=== PATIENT | female | born 1950 | race Caucasian/White ===

== ENCOUNTER 2019-06-11 07:57 | Outpatient (CLI) | payer MEDICARE, BC, SELFPAY ==
--- NOTE | 2019-06-11 08:14 | MM_ITS ---
WS: [id number] BILATERAL SCREENING DIGITAL MAMMOGRAM WITH CAD HISTORY: SCREENING COMPARISON: 06/07/2018 and 06/03/2017 Bilateral CC and MLO views submitted. Computer aided detection analyzed. Breast composition: There are scattered areas of fibroglandular density. No suspicious masses, microc alcifications or architectural distortion. Benign calcification upper-outer quadrant of the RIGHT saurav ast. MM/[id number] IMPRESSION: BI-RADS: 2-Benign FOLLOW UP: 1 Year Follow-up
== END 2019-06-11 07:58 | disposition home or self-care (01) ==
PROVIDERS: Family Provider Family Medicine; PCP Family Medicine; Visit Provider Family Medicine
DX: Z12.31 Encounter for screening mammogram for malignant neoplasm of breast (principal)
CPT/HCPCS: 77067

== ENCOUNTER → 2020-09-03 10:33 | Outpatient (BNVA) | payer MEDICARE, BC, SELFPAY | PROVIDERS: Family Provider Family Medicine; PCP Family Medicine; Visit Provider Nurse Practitioner | DX: J02.9 Acute pharyngitis, unspecified (principal); J01.90 Acute sinusitis, unspecified; B96.89 Other specified bacterial agents as the cause of diseases classified elsewhere; Z68.30 Body mass index [BMI] 30.0-30.9, adult | CPT/HCPCS: 87071; 87880 ==

== ENCOUNTER 2021-12-29 15:14 | Outpatient (CLI) | payer MEDICARE, BC, SELFPAY ==
--- NOTE | 2021-12-29 15:29 | MM_ITS ---
WS: [id number] BILATERAL 3D TOMOSYNTHESIS DIGITAL SCREENING MAMMOGRAPHY WITH CAD CLINICAL INFORMATION: SCREENING HISTORY: Screening mammogram. No current complaints. COMPARISON: June 11, 2019 TECHNIQUE: Bilateral CC and MLO views. FINDINGS: Scattered fibroglandular densities bilaterally. A few punctate calcifications RIGHT breast. No suspic ious focal mass, asymmetry, calcifications, or architectural distortion. No evidence of malignancy. MM/[id number] IMPRESSION: BI-RADS: 2-Benign FOLLOW UP: 1 Year Follow-up Recommend return to annual screening mammography.
== END 2021-12-29 15:15 | disposition home or self-care (01) ==
PROVIDERS: PCP Family Medicine; Visit Provider Family Medicine
DX: Z12.31 Encounter for screening mammogram for malignant neoplasm of breast (principal)
CPT/HCPCS: 77063; 77067

== ENCOUNTER 2022-01-30 17:11 | Emergency (ER) | payer MEDICARE, BC, SELFPAY ==
[2022-01-30 17:20] VITALS: BP 173/93; PULSE 90; RESP 16; TEMP 36.7; O2SAT 95; BMI 30.6
--- NOTE | 2022-01-30 17:46 | ED_ITS ---
HPI - Abdominal Pain General: Chief Complaint: Abdominal Pain Stated Complaint: abd pain; diarrhea Time Seen by Provider: 01/30/22 17:40 Source: patient Mode of arrival: ambulatory History of Present Illness: 71-year-old female presents emergency room with left lower quadrant abdominal discomfort x3 days.. She is having some loose stools denies any hematochezia melena hematemesis or coffee-ground emesis. She has been somewhat nauseous. No fever sweats or chills. No dysuria urgency or frequency. Symptoms feel similar to what she has had in the past with diverticulitis. MD elicited complaint: abdominal pain Pertinent past history: diverticulitis Onset (ago): day(s) (3) Pain Consistency: constant Location: LLQ Severity: moderate Quality: cramping Radiation: none Exacerbating factors: nothing Relieving factors: nothing Associated Symptoms: Reports bloating, change in bowel habits, GI cramping, diarrhea, nausea and poor appetite; Denies anorexia, belching, change in stool character, chills, coffee ground emesis, constipation, dyspepsia, dysuria, excessive flatus, fever(s), heartburn, hematochezia, hematuria, hematemesis, fecal incontinence, loose stools, melena, syncope and vomiting Review of Systems Const: Denies: fever(s), chills, fatigue or malaise ENMT: Denies: throat pain, ear or mastoid pain, nasal discharge or nasal congestion Card: Denies: chest pain or syncope Resp: Denies: dyspnea, productive cough or non-productive cough GI: Reports: abdominal pain, nausea, diarrhea, bloating, GI cramping and c hange in bowel habits; Denies: vomiting, hematemesis, coffee ground emesis, heartburn, constipation, belching, excessive flatus, fecal incontinence, change in stool character, hematochezia or melena : Denies: flank pain, difficulty voiding, dysuria, urinary frequency, urinary urgency or hematuria Skin/Breast: Denies: rash or pruritus PFSH ED PFSH: Medical History (Updated 02/02/22 @ 06:42 by Natan Goodman DO) Diverticulitis Social History Smoking and tobacco status: never smoked Physical Exam Const: GENERAL APPEARANCE: cooperative and comfortable ORIENTATION/CONSCIOUSNESS: Yes awake, Yes oriented to person, Yes oriented to place and Yes oriented to time HENMT: COMMON NORMALS: normocephalic, atraumatic and hearing grossly normal bilaterally HEAD & SCALP: normocephalic and atraumatic Resp: COMMON NORMALS: normal respiratory effort, No retractions, No use of accessory muscles and clear to auscultation bilaterally AUSCULTATION: clear to auscultation bilaterally Cardio: COMMON NORMALS: regular rate, regular rhythm and No murmurs present (Cardio) RATE: regular rate RHYTHM: regular rhythm GI: COMMON NORMALS: No hepatosplenomegaly present AUSCULTATION: Yes normoactive bowel sounds PALPATION: Yes Tenderness to palpation present (GI) Details: LLQ, No Guarding due to palpation present (GI) and Yes No hepatosplenomegaly present Extremity: COMMON NORMALS: normal to inspection, capillary refill normal, no clubbing, cyanosis or edema, no calf tenderness and no pedal edema Neuro: SENSORIUM/ORIENTATION: Yes oriented to person, Yes oriented to place and Yes oriented to time Skin: COMMON NORMALS: no rashes or lesions noted GENERAL SKIN EXAM: no rashes or lesions noted Course Vital Signs: Vital signs: Vital Signs Temperature 98.0 F 01/30/22 17:20 Pulse Rate 92 01/30/22 18:31 Respiratory Rate 16 01/30/22 18:31 Blood Pressure 169/104 01/30/22 18:31 Pulse Oximetry 97 01/30/22 18:31 Oxygen Delivery Me thod 01/30/22 17:20 MDM - Abdominal Pain Medical Decision Making Based on history and exam patient has diverticulitis. Will treat with oral antibiotics. Clear liquid diet for the next few days return to the emergency room if suddenly worsening or change. Follow-up with primary care doctor if does not begin to improve in the next several days. Medical Records I reviewed the patient's medical records. Lab Data I reviewed the patient's lab results. Discharge Plan Discharge Patient Disposition: Home Clinical Impression: Diverticulitis Condition: Stable Prescriptions: New ciprofloxacin HCl 500 mg tablet 500 mg PO BID Qty: 20 0RF metronidazole 500 mg tablet 500 mg PO BID 10 Days Qty: 20 0RF hydrocodone-acetaminophen 5-325 mg tablet 1 tab PO Q6H PRN (Reason: pain) Qty: 20 0RF promethazine 25 mg tablet 25 mg PO Q6H PRN (Reason: nausea and vomiting) Qty: 20 0RF Discontinued amoxicillin 500 mg capsule 500 mg PO Q12H 10 Days Qty: 20 0RF Discharge Orders: Discharge ED (Routine); Ordered 01/30/22 Ordered By: Natan Goodman Referrals: Polina Wahl MD [Primary Care Provider] - Discharge Diet: Full LIquid Discharge Activity: Increase activity as tolerated Patient Instructions: Opioid Safety Activity Restrictions/Additional Instructions: If not improving over the next 2 days follow-up with Dr. Siddiqui in the office. If she markedly worsens return to the emergency room. Coding Level of Care Code ED Scientific Artist for Danika Gracia
[2022-01-30] MEDS: promethazine 25 mg/mL SDV 1 mL IM (18:03)
[2022-01-30] MEDS: HYDROmorphone 1 mg/mL INJ 1 mL 0.5 MG IM (18:08)
[2022-01-30 18:31] VITALS: BP 169/104; PULSE 92; RESP 16; O2SAT 97
== END 2022-01-30 18:34 | disposition home or self-care (01) ==
PROVIDERS: Emergency Provider Family Medicine; PCP Family Medicine
DX: K57.92 Diverticulitis of intestine, part unspecified, without perforation or abscess without bleeding (principal)
CPT/HCPCS: 96372; 99284; J1170; J2550

== ENCOUNTER → 2022-11-09 10:06 | Outpatient (BNVA) | payer MEDICARE, SELFPAY | PROVIDERS: PCP Family Medicine; Visit Provider Nurse Practitioner Family | DX: J02.9 Acute pharyngitis, unspecified (principal) | CPT/HCPCS: 87071; 87880 ==

== ENCOUNTER 2022-12-22 13:32 | Emergency (ER) | payer MEDICARE, SELFPAY ==
[2022-12-22] VITALS (8 sets, daily range): BP systolic 98–171; BP diastolic 56–116; PULSE 60–73; RESP 11–22; TEMP 36.7; O2SAT 89–97
[2022-12-22 17:08] LABS: Basophils # 0.1 10^3/uL (0.0-0.1); Basophils % 0.7 %; Eosinophils # 0.2 10^3/uL (0.0-0.8); Eosinophils % 2.3 %; Hematocrit 46.9 % (37.0-47.0); Hemoglobin 15.4 g/dL (11.5-15.3); Lymphocytes # 2.7 10^3/uL (0.8-4.8); Lymphocytes % 29.9 %; Mean Corpuscular HGB Conc 32.8 g/dL (30.0-36.0); Mean Corpuscular Hemoglobin 29.5 pg (28.0-34.0); Mean Corpuscular Volume 89.8 fl (81-99); Mean Platelet Volume 12.2 fL (7.4-10.4); Monocytes # 0.7 10^3/uL (0.2-0.9); Monocytes % 7.9 %; Neutrophils # 5.27 10^3/uL (1.8-7.7); Nucleated Red Blood Cells % 0 %; Platelet Count 217 10^3/cmm (130-400); Red Blood Count 5.22 10^6/uL (4.1-5.3); Red Cell Distribution Width 12.9 % (12.1-15.1)
[2022-12-22 17:36] LABS: Alanine Aminotransferase 11 U/L (0-33); Albumin Level 4.3 g/dL (3.5-5.2); Alkaline Phosphatase 109 U/L (35-105); Anion Gap 13.3 (5-19); Aspartate Amino Transferase 15 U/L (0-32); Blood Urea Nitrogen 10 mg/dL (8-23); Calcium 9.5 mg/dL (8.5-10.5); Carbon Dioxide 30 mmol/L (22-29); Chloride 101 mmol/L (98-107); Globulin 2.7 g/dL (1.3-4.6); Glomerular Filtration Rate 70.9 mL/min (90-130); Glucose 100 mg/dL (65-115); Lipase 30 U/L (13-60); Osmolality Calculated 289 mOsm/kg (285-295); Potassium 4.3 mmol/L (3.5-5.1); Sodium 140 mmol/L (136-145); Total Bilirubin 0.4 mg/dL (0.15-1.2)
--- NOTE | 2022-12-22 20:47 | CTR_ITS ---
PROCEDURE INFORMATION: Exam: CT Abdomen And Pelvis With Contrast Exam date and time: 12/22/2022 9:44 PM Age: 72 years old Clinical indication: Abdominal pain; Generalized; Additional info: Abd pain TECHNIQUE: Imaging protocol: Computed tomography of the abdomen and pelvis with contrast. Radiation optimization: All CT scans at this facility use at least one of these dose optimization techniques: automated exposure control; mA and/or kV adjustment per patient size (includes targeted exams where dose is matched to clinical indication); or iterative reconstruction. Contrast material: OMNI 350; Contrast volume: 100 ml; Contrast route: INTRAVENOUS (IV); REPORTING DATA: Count of CT and Cardiac NM exams in prior 12 months: This patient has received 0 known CTs and 0 known cardiac nuclear medicine studies in the 12 months prior to the current study. COMPARISON: CT abdomen pelvis w con* [id number] 02/14/2019 6:31 PM RADIATION DOSE METRICS: Total DLP (mGy-cm): 737.03 FINDINGS: Lungs: There are minor atelectatic changes at the lung bases. Liver: Normal. No mass. Gallbladder and bile ducts: Normal. No calcified stones. No ductal dilation. Pancreas: Unremarkable. Main pancreatic duct is not significantly dilated. Spleen: Normal. No splenomegaly. Adrenal glands: Normal. No mass. Kidneys and ureters: Normal. No hydronephrosis. Stomach and bowel: There are multiple diverticuli throughout the distal portion of the large bowel without evidence of diverticulitis. There is mild fluid-filled distention of the terminal ileum at the ileocecal junction which is presumed transient in nature. Appendix: No evidence of acute appendicitis. Intraperitoneal space: Unremarkable. No free air. No significant fluid collection. Vasculature: Unremarkable. No abdominal aortic aneurysm. Lymph nodes: Unremarkable. No enlarged lymph nodes. Urinary bladder: Unremarkable as visualized. Reproductive: Unremarkable as visualized. Bones/joints: Unremarkable. No acute fracture. Soft tissues: Unremarkable. CT/CT abdomen pelvis w con* [id number] IMPRESSION: 1. No acute findings within the abdomen or pelvis. 2. Colonic diverticulosis. No evidence of acute diverticulitis.
--- NOTE | 2022-12-22 20:49 | ED_ITS ---
HPI - Abdominal Pain General: Chief Complaint: Abdominal Pain Stated Complaint: right side pain Time Seen by Provider: 12/22/22 20:39 Source: patient Mode of arrival: ambulatory Limitations: no limitations History of Present Illness: 72-year-old female states been having right-sided abdominal pain over the last 6 weeks has been mild but states for last 2 days this got much worse states it is gone the right mid and right upper abdomen she rates the pain a 8 out of 10 currently. She denies any vomiting she has had some nausea denies any worsening improving factors. Associated Symptoms: Reports nausea; Denies chills, diarrhea, dysuria, fever(s) and vomiting Review of Systems Const: Denies: fever(s), chills, body aches or change in appetite ENMT: Denies: throat pain or dental pain Card: Denies: chest pain Resp: Denies: dyspnea GI: Reports: abdominal pain and nausea; Denies: vomiting or diarrhea : Denies: dysuria Musc: Denies: neck pain or back pain Skin/Breast: Denies: rash Neuro: Denies: headache(s) PFSH ED PFSH: Medical History Diverticulitis Social History Smoking and tobacco status: never smoked Physical Exam Const: COMMON NORMALS: no acute distress, patient oriented x3 and healthy appearing HENMT: COMMON NORMALS: normocephalic and atraumatic HEAD & SCALP: normoceph alic and atraumatic Eye: COMMON NORMALS: conjunctivae normal CONJUNCTIVA: Yes conjunctivae normal Neck/C-Spine: COMMON NORMALS: full ROM and supple Chest: COMMONS NORMALS: normal inspection of the chest and normal palpation of entire chest wall Resp: COMMON NORMALS: normal respiratory effort, No retractions, No use of accessory muscles and clear to auscultation bilaterally AUSCULTATION: clear to auscultation bilaterally Cardio: COMMON NORMALS: regular rate, regular rhythm and No murmurs present (Cardio) RATE: regular rate RHYTHM: regular rhythm GI: COMMON NORMALS: Normal to inspection, nondistended, normoactive bowel sounds present, Soft to palpation and no masses PALPATION: Yes Soft to palpation and Yes Tenderness to palpation present (GI) Details: RUQ Extremity: COMMON NORMALS: normal to inspection and full ROM Neuro: COMMON NORMALS: patient oriented x3, moves all extremities and no focal motor deficits Psych: COMMON NORMALS: mental status grossly normal, Normal thought process present and cooperative THOUGHT PROCESS: Normal thought process present Skin: COMMON NORMALS: no rashes or lesions noted and no wounds GENERAL SKIN EXAM: no rashes or lesions noted Course Vital Signs: Vital signs: Vital Signs Temperature 98.1 F 12/22/22 14:22 Pulse Rate 60 12/22/22 21:30 Respiratory Rate 12 12/22/22 21:30 Blood Pressure 98/56 12/22/22 21:30 Pulse Oximetry 89 L 12/22/22 21:30 Oxygen Delivery Me thod Room Air 12/22/22 21:15 MDM - Abdominal Pain Medical Decision Making Patient presents here with abdominal pain imaging blood work here is all normal pain is resolved she is stable for discharge she is to follow-up with PCP and return if worsening. Medical Records I reviewed the patient's medical records. Lab Data I reviewed the patient's lab results. 12/22/22 16:52 12/22/22 16:52 Labs/Radiology: Radiology Impressions Abdomen/Pelvis CT 12/22/22 20:47 IMPRESSION: 1. No acute findings within the abdomen or pelvis. 2. Colonic diverticulosis. No evidence of acute diverticulitis. Laboratory Results WBC 9.0 10^3/uL (4.0-10.0) 12/22/22 16:52 RBC 5.22 10^6/uL (4.1-5.3) 12/22/22 16:52 Hgb 15.4 g/dL (11.5-15.3) H 12/22/22 16:52 Hct 46.9 % (37.0-47.0) 12/22/22 16:52 MCV 89.8 fl (81-99) 12/22/22 16:52 MCH 29.5 pg (28.0-34.0) 12/22/22 16:52 MCHC 32.8 g/dL (30.0-36.0) 12/22/22 16:52 RDW 12.9 % (12.1-15.1) 12/22/22 16:52 Plt Count 217 10^3/cmm (130-400) 12/22/22 16:52 MPV 12.2 fL (7.4-10.4) H 12/22/22 16:52 Neut % (Auto) 59.0 % 12/22/22 16:52 Lymph % (Auto) 29.9 % 12/22/22 16:52 [place] % (Auto) 7.9 % 12/22/22 16:52 Eos % (Auto) 2.3 % 12/22/22 16:52 Baso % (Auto) 0.7 % 12/22/22 16:52 Neut # (Auto) 5.27 10^3/uL (1.8-7.7) 12/22/22 16:52 Lymph # (Auto) 2.7 10^3/uL (0.8-4.8) 12/22/22 16:52 [place] # (Auto) 0.7 10^3/uL (0.2-0.9) 12/22/22 16:52 Eos # (Auto) 0.2 10^3/uL (0.0-0.8) 12/22/22 16:52 Baso # (Auto) 0.1 10^3/uL (0.0-0.1) 12/22/22 16:52 Nucleated RBC % (auto) 0 % 12/22/22 16:52 Nucleated RBCs # 0.0 /100WBC 12/22/22 16:52 Sodium 140 mmol/L (136-145) 12/22/22 16:52 Potassium 4.3 mmol/L (3.5-5.1) 12/22/22 16:52 Chloride 101 mmol/L (98-107) 12/22/22 16:52 Carbon Dioxide 30 mmol/L (22-29) H 12/22/22 16:52 Anion Gap 13.3 (5-19) 12/22/22 16:52 BUN 10 mg/dL (8-23) 12/22/22 16:52 Creatinine 0.8 mg/dL (0.5-0.9) 12/22/22 16:52 GFR Calculation 70.9 mL/min (90-130) L 12/22/22 16:52 Glucose 100 mg/dL (65-115) 12/22/22 16:52 Calculated Osmolality 289 mOsm/kg (285-295) 12/22/22 16:52 Calcium 9.5 mg/dL (8.5-10.5) 12/22/22 16:52 Total Bilirubin 0.4 mg/dL (0.15-1.2) 12/22/22 16:52 AST 15 U/L (0-32) 12/22/22 16:52 ALT 11 U/L (0-33) 12/22/22 16:52 Alkaline Phosphatase 109 U/L (35-105) H 12/22/22 16:52 Total Protein 7.0 g/dL (6.6-8.7) 12/22/22 16:52 Albumin 4.3 g/dL (3.5-5.2) 12/22/22 16:52 Globulin 2.7 g/dL (1.3-4.6) 12/22/22 16:52 Lipase 30 U/L (13-60) 12/22/22 16:52 Urine Color Light yellow (Yellow) 12/22/22 23:00 Urine Appearance Clear (CLEAR) 12/22/22 23:00 Urine pH 5 (5-7) 12/22/22 23:00 Ur Specific [place] 1.005 (1.005-1.030) 12/22/22 23:00 Urine Protein Neg (Negative) 12/22/22 23:00 Urine Glucose (UA) Norm (Normal) 12/22/22 23:00 Urine Ketones Negative (Negative) 12/22/22 23:00 Urine Blood Neg (Negative) 12/22/22 23:00 Urine Nitrate Negative (Negative) 12/22/22 23:00 Urine Bilirubin Neg (Negative) 12/22/22 23:00 Urine Urobilinogen Neg mg/dL (Negative) 12/22/22 23:00 Ur Leukocyte Esterase Negative (Negative) 12/22/22 23:00 Discharge Plan Discharge Patient Disposition: Home Clinical Impression: Abdominal pain Condition: Stable Prescriptions: New hydrocodone-acetaminophen 5-325 mg tablet 1 tab PO Q6H PRN (Reason: pain) Qty: 14 0RF Protonix 40 mg tablet,delayed release (DR/EC) 40 mg PO DAILY Qty: 60 0RF ondansetron 4 mg tablet,disintegrating 4 mg PO Q6H PRN (Reason: nausea and vomiting) Qty: 14 0RF No Action rizatriptan 10 mg tablet,disintegrating 10 mg PO losartan 25 mg tablet 25 mg PO DAILY Discharge Orders: Discharge ED (Routine); Ordered 12/22/22 Ordered By: Lisa Fisher Referrals: Polina Wahl MD [Primary Care Provider] - 1-3 days Discharge Diet: Advance as tolerated Discharge Activity: Resume usual activity Patient Instructions: Abdominal Pain (ED), Opioid Safety Coding Level of Care Code ED Taping Supervisor for Danika Gracia
[2022-12-22] MEDS: HYDROmorphone 1 mg/mL INJ 1 mL 0.5 MG IVP (21:14)
[2022-12-22] MEDS: ondansetron 2 mg/ML SDV 2 mL 4 MG IVP (21:22)
[2022-12-22] MEDS: sodium chloride 0.9% 1,000 ML 999 ML IV (21:30)
--- NOTE | 2022-12-22 21:32 | PC.NURSE ---
Administered approximately half of the dose of Dilaudid. Pt became nauseous and dry heaving. MD notified recieved verbal order for 4 mg of zofran IVP. Pt HR dropped in 30s. MD notified received verbal order for NS 1L bolus.
[2022-12-22] MEDS: iohexol 350 mg/mL 500 mL Btl (per mL) IV (21:52)
[2022-12-22 23:17] LABS: Add Urine Microscopic? NO; Charge for UA Resulting for Rev
[2022-12-22 23:19] LABS: Bilirubin Urine Neg (Negative); Blood Urine Neg (Negative); Glucose Urine UA Norm (Normal); Ketones Urine Negative (Negative); Leukocyte Esterase Urine Negative (Negative); Nitrate Urine Negative (Negative); Protein Urine Neg (Negative); Specific Gravity, Urine 1.005 (1.005-1.030); Urine Appearance Clear (CLEAR); Urine Color Light yellow (Yellow); Urobilinogen Urine Neg (Negative); pH Urine 5 (5-7)
[2022-12-23 00:11] VITALS: BP 136/78; PULSE 64; RESP 18; O2SAT 93
== END 2022-12-23 00:14 | disposition home or self-care (01) ==
PROVIDERS: Emergency Medicine; Emergency Provider Emergency Medicine; PCP Family Medicine
DX: R10.11 Right upper quadrant pain (principal); Z79.899 Other long term (current) drug therapy
CPT/HCPCS: 36415; 74177; 80053; 81003; 83690; 85025; 96361; 96374; 96375; 99285; J1170; J2405; J7030; Q9967

== ENCOUNTER → 2023-01-17 07:45 | Outpatient (BNVA) | payer MEDICARE, SELFPAY | PROVIDERS: PCP Family Medicine; Visit Provider Otolaryngology | DX: H91.93 Unspecified hearing loss, bilateral; H93.13 Tinnitus, bilateral | CPT/HCPCS: 99203 ==

== ENCOUNTER 2023-03-28 11:10 | Outpatient (CLI) | payer MEDICARE, SELFPAY ==
--- NOTE | 2023-03-28 11:42 | MM_ITS ---
WS: [id number] BILATERAL SCREENING DIGITAL TOMOSYNTHESIS MAMMOGRAM WITH CAD HISTORY: SCREENING COMPARISON: 12/29/2021, 06/11/2019 Bilateral CC and MLO views with tomosynthesis and synthetic mammography submitted. Computer aided det ection analyzed. Breast composition: There are scattered areas of fibroglandular density. No suspicious masses, microc alcifications or architectural distortion. Benign calcifications upper outer quadrant RIGHT breast. IMPRESSION: MM/[id number] BI-RADS: 2-Benign FOLLOW UP: 1 Year Follow-up
== END 2023-03-28 11:11 | disposition home or self-care (01) ==
LOC: RAD 11:10
PROVIDERS: PCP Family Medicine; Visit Provider Family Medicine
DX: Z12.31 Encounter for screening mammogram for malignant neoplasm of breast (principal)
CPT/HCPCS: 77063; 77067

== ENCOUNTER → 2023-07-13 11:06 | Outpatient (BNVA) | payer MEDICARE, SELFPAY | PROVIDERS: PCP Family Medicine; Visit Provider Otolaryngology | DX: H90.3 Sensorineural hearing loss, bilateral (principal); H93.13 Tinnitus, bilateral | CPT/HCPCS: 99214 ==

== ENCOUNTER 2023-12-01 09:17 | Emergency (ER) | payer MEDICARE, SELFPAY ==
[2023-12-01 09:46] VITALS: BP 184/106; PULSE 67; RESP 18; TEMP 36.7; O2SAT 99
--- NOTE | 2023-12-01 10:12 | CTR_ITS ---
PROCEDURE INFORMATION: Exam: CT Abdomen And Pelvis With Contrast Exam date and time: 12/01/2023 11:15 AM Age: 72 years old Clinical indication: Abdominal pain; Localized; Right lower quadrant (rlq); Prior surgery; Surgery date: 6+ months; Surgery type: Tubal; Additional info: Right sided abd pain TECHNIQUE: Imaging protocol: Computed tomography of the abdomen and pelvis with contrast. Radiation optimization: All CT scans at this facility use at least one of these dose optimization techniques: automated exposure control; mA and/or kV adjustment per patient size (includes targeted exams where dose is matched to clinical indication); or iterative reconstruction. Contrast material: OMNI 350; Contrast volume: 100 ml; Contrast route: INTRAVENOUS (IV); COMPARISON: CT abdomen pelvis w con* [id number] 12/22/2022 9:44 PM RADIATION DOSE METRICS: Total DLP (mGy-cm): 740.46 FINDINGS: Liver: Moderately fatty nonenlarged liver. Gallbladder and biliary ducts: Suspect a very small single gallstone. No ductal dilation. Pancreas: Normal. No ductal dilation. Spleen: Normal. No splenomegaly. Adrenal glands: Normal. No mass. Kidneys and ureters: Normal. No hydronephrosis. Stomach and bowel: Diverticulosis in the colon. No evidence of diverticulitis. Moderate fecal retention heaviest in the rectum. Appendix: Unremarkable right lower quadrant appendix. Intraperitoneal space: Unremarkable. No free air. No significant fluid collection. Vasculature: Unremarkable. No abdominal aortic aneurysm. Lymph nodes: Unremarkable. No enlarged lymph nodes. Urinary bladder: Unremarkable as visualized. Reproductive: Unremarkable as visualized. Bones/joints: Unremarkable. No acute fracture. Soft tissues: Unremarkable. Other findings: Stable scarring involving the left base and minimally in the right base. CT/CT abdomen pelvis w con* [id number] IMPRESSION: No acute findings. Possible small gallstone.
--- NOTE | 2023-12-01 10:13 | W.ED.ABDPA2 ---
HPI - Abdominal Pain General: Chief Complaint: Abdominal Pain Stated Complaint: constipation, abd pain Time Seen by Provider: 12/01/23 10:02 Source: patient and family Mode of arrival: ambulatory Limitations: no limitations History of Present Illness: To the emergency department this morning because of progressive and worsening abdominal pain and associated failure to have a bowel movement for the last 5 days. She states that she normally has 2-3 bowel movements a day without any effort. She states that she has not had no recent change in diet, recent travel, or other perturbations in her usual activities. She states that yesterday she strained enough that she did exacerbate a hemorrhoid as she strained it stool yesterday and did not produce any stool but did have bright red blood in the toilet and she is uncomfortable. She states that she feels bloated and full and uncomfortable. She has not eaten since yesterday because of lack of appetite. Had a prior tubal ligation and vaginal births but no other abdominal surgeries. She had a prior history of diverticulitis. She has been told by her user support analyst supervisor that she had early descensus of the uterus and that that may cause her problems in the future but she has not had any issues with voiding and up until a week ago no issues with bowel movements. MD elicited complaint: abdominal pain Pertinent past history: constipation Quality: aching and fullness Migration to: no migration Associated Symptoms: Reports constipation, hematochezia and nausea; Denies chills, dysuria, fever(s), hematemesis, melena, syncope and vomiting Review of Systems Const: Denies: fever(s) or chills ENMT: Denies: odynophagia, nasal discharge or nasal congestion Card: Denies: chest pain, palpitations, syncope or pre-syncope Resp: Denies: productive cough or non-productive cough GI: Reports: abdominal pain, nausea, constipation and hematochezia; Denies: vomiting, hematemesis or melena : Denies: flank pain, difficulty voiding, dysuria or urinary frequency Musc: Denies: neck pain, back pain, extremity pain or extremity swelling Skin/Breast: Denies: rash Neuro: Denies: headache(s), numbness in extremities or weakness in extremities Jai/Lymph: Denies: easy bruising or easy bleeding PFS ED PFSH: Medical History Diverticulitis Social History Smoking and tobacco/nicotine status: never used tobacco/nicotine Physical Exam Narrative: EXAM NARRATIVE: She is alert and appears to be in no acute distress. Const: COMMON NORMALS: no acute distress, patient oriented x3 and alert GENERAL APPEARANCE: cooperative and comfortable HENMT: COMMON NORMALS: normocephalic, Normal nasal mucous membranes and turbinates present, moist oral mucous membranes and oropharynx normal HEAD & SCALP: normocephalic NOSE: Normal nasal mucous membranes and turbinates present Eye: COMMON NORMALS: Equal, round and reactive pupils present, EOMs intact bilaterally, conjunctivae normal and no scleral icterus CONJUNCTIVA: Yes conjunctivae normal PUPIL: Yes Equal, round and reactive pupils present Neck/C-Spine: COMMON NORMALS: full ROM and no lymphadenopathy Chest: COMMONS NORMALS: normal inspection of the chest Resp: COMMON NORMALS: normal respiratory effort, No retractions and clear to auscultation bilaterally AUSCULTATION: clear to auscultation bilaterally Cardio: COMMON NORMALS: regular rate, regular rhythm, No murmurs present (Cardio) and Peripheral pulses 2+ throughout RATE: regular rate RHYTHM: regular rhythm PERIPHERAL PULSES: Peripheral pulses 2+ throughout GI: OTHER: Abdominal examination reveals slightly distended with intermittent bowel sounds noted. She has no palpable masses but has significant right mid and upper abdominal tenderness. No lower abdominal tenderness or left-sided tenderness. No rebound. Examination of the rectum reveals few nondilated hemorrhoidal skin tags. She has normal tone. She does have a very small fissure at approximately 3:00 which is not actively bleeding at this time. : COMMON NORMALS: Yes no CVA tenderness BLADDER/KIDNEY EXAM: Yes no CVA tenderness Back/Pelvis: COMMON NORMALS: no CVA tenderness, thoracic and lumbar spine normal to inspection, no thoracic nor lumbar tenderness and thoraco-lumbar ROM normal Extremity: COMMON NORMALS: normal to inspection, full ROM, no calf tenderness and no pedal edema Neuro: COMMON NORMALS: patient oriented x3, moves all extremities, no focal motor deficits and no sensory deficits noted SENSORIUM/ORIENTATION: Yes alert Skin: COMMON NORMALS: no rashes or lesions noted and turgor normal GENERAL SKIN EXAM: no rashes or lesions noted and turgor normal Course Reevaluation(s): Reevaluation #1: Patient actually had a small bowel movement after receiving pain medicines and states she feels some better. I reviewed the current findings and the reassuring results with her. No evidence at this time to suggest a ongoing emergency medical condition such as bowel obstruction, appendicitis or other acute intra-abdominal issue. 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 She reports asked if she should see her user support analyst supervisor I think that is a reasonable thing for her to do to get into her user support analyst supervisor to have her reevaluated for any potential procedure she might need. We also discussed return precautions with both she and daughter. They were appreciative of care. When I going to have her take her MiraLAX twice daily to help keep her stools soft until he has more back to her regular bowel pattern. Time: 12:57 Vital Signs: Vital signs: Vital Signs Temperature 98.1 F 12/01/23 09:46 Pulse Rate 57 L 12/01/23 12:26 Respiratory Rate 16 12/01/23 10:38 Blood Pressure 178/78 12/01/23 12:26 Pulse Oximetry 98 12/01/23 12:26 Oxygen Delivery Me thod Room Air 12/01/23 12:26 MDM - Abdominal Pain Medical Decision Making This patient presented with history of constipation and progressive abdominal fullness over the past week. 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 In her current clinical situation and findings differential included possible occult appendicitis, bowel obstruction or other intra-abdominal pathology. Imaging and laboratories were obtained to evaluate and narrow her differential diagnosis. Imaging was unremarkable for any significant pathology other than some moderate amount of retained stool. She did also have an isolated gallstone but no pericolic fluid ductal dilatation or other biochemical findings to suggest acute biliary tract issue at this time. This was also shared with the patient. The patient had improvement in her subjective symptoms after pain medication the emergency department and that she had a bowel movement and felt some better. Patient discharged in stable condition on a MiraLAX regimen and return precautions. She will also consult her user support analyst supervisor for further evaluation. Lab Data I reviewed the patient's lab results. 12/01/23 10:22 12/01/23 10:22 Labs/Radiology: Radiology Impressions Abdomen/Pelvis CT 12/01/23 10:12 IMPRESSION: No acute findings. Possible small gallstone. Chest X-Ray 12/01/23 10:20 IMPRESSION: No acute findings. Laboratory Results WBC 9.64 10^3/uL (3.29-11.43) 12/01/23 10:22 RBC 5.47 10^6/uL (3.85-5.65) 12/01/23 10:22 Hgb 16.00 g/dL (11.27-16.99) 12/01/23 10:22 Hct 48.1 % (36-47) H 12/01/23 10:22 MCV 87.9 fl (85-98) 12/01/23 10:22 MCH 29.3 pg (27-33) 12/01/23 10:22 MCHC 33.3 g/dL (30-55) 12/01/23 10:22 RDW 12.6 % (12.1-15.1) 12/01/23 10:22 Plt Count 220 10^3/cmm (157-399) 12/01/23 10:22 MPV 11.8 fL (7.4-10.4) H 12/01/23 10:22 Neut % (Auto) 77.7 % 12/01/23 10:22 Lymph % (Auto) 15.8 % 12/01/23 10:22 [place] % (Auto) 4.8 % 12/01/23 10:22 Eos % (Auto) 1.1 % 12/01/23 10:22 Baso % (Auto) 0.3 % 12/01/23 10:22 Neut # (Auto) 7.49 10^3/uL (1.8-7.7) 12/01/23 10:22 Lymph # (Auto) 1.5 10^3/uL (0.8-4.8) 12/01/23 10:22 [place] # (Auto) 0.5 10^3/uL (0.2-0.9) 12/01/23 10:22 Eos # (Auto) 0.1 10^3/uL (0.0-0.8) 12/01/23 10:22 Baso # (Auto) 0.0 10^3/uL (0.0-0.1) 12/01/23 10:22 Nucleated RBC % (auto) 0 % 12/01/23 10:22 Nucleated RBCs # 0.0 /100WBC 12/01/23 10:22 Sodium 143 mmol/L (136-145) 12/01/23 10:22 Potassium 4.3 mmol/L (3.5-5.1) 12/01/23 10:22 Chloride 105 mmol/L (98-107) 12/01/23 10:22 Carbon Dioxide 27 mmol/L (22-29) 12/01/23 10:22 Anion Gap 15.3 (5-19) 12/01/23 10:22 BUN 10 mg/dL (8-23) 12/01/23 10:22 Creatinine 0.7 mg/dL (0.5-0.9) 12/01/23 10:22 GFR Calculation 82.7 mL/min (90-130) L 12/01/23 10:22 Glucose 121 mg/dL (65-115) H 12/01/23 10:22 Calculated Osmolality 296 mOsm/kg (285-295) H 12/01/23 10:22 Calcium 9.3 mg/dL (8.5-10.5) 12/01/23 10:22 Total Bilirubin 0.8 mg/dL (0.15-1.2) 12/01/23 10:22 AST 29 U/L (0-32) 12/01/23 10:22 ALT 11 U/L (0-33) 12/01/23 10:22 Alkaline Phosphatase 125 U/L (35-105) H 12/01/23 10:22 Total Protein 8.0 g/dL (6.6-8.7) 12/01/23 10:22 Albumin 4.5 g/dL (3.5-5.2) 12/01/23 10:22 Globulin 3.5 g/dL (1.3-4.6) 12/01/23 10:22 Lipase 19 U/L (13-60) 12/01/23 10:22 Urine Color Yellow (Yellow) 12/01/23 12:19 Urine Appearance Clear (CLEAR) 12/01/23 12:19 Urine pH 8 (5-7) H 12/01/23 12:19 Ur Specific Elmo 1.005 (1.005-1.030) 12/01/23 12:19 Urine Protein Neg (Negative) 12/01/23 12:19 Urine Glucose (UA) Norm (Normal) 12/01/23 12:19 Urine Ketones Negative (Negative) 12/01/23 12:19 Urine Blood Neg (Negative) 12/01/23 12:19 Urine Nitrate Negative (Negative) 12/01/23 12:19 Urine Bilirubin Neg (Negative) 12/01/23 12:19 Urine Urobilinogen Norm mg/dL (Negative) 12/01/23 12:19 Ur Leukocyte Esterase 1+ (Negative) H 12/01/23 12:19 Urine RBC None /hpf (0-2) 12/01/23 12:19 Urine WBC 0-4 /hpf (0-5) H 12/01/23 12:19 Ur Squamous Epith Cells 5-10 /hpf (0-5) H 12/01/23 12:19 Amorphous Sediment Not Reportable 12/01/23 12:19 Urine Bacteria None /hpf (NONE) 12/01/23 12:19 Urine Mucus None /hpf 12/01/23 12:19 All radiology interpretation(s) finalized by discharge Discharge Plan Discharge Patient Disposition: Home Clinical Impression: Abdominal pain Constipation Qualifiers: Constipation type: unspecified constipation type Qualified Code(s): K59.00 - Constipation, unspecified Condition: Stable Prescriptions: No Action losartan 25 mg tablet 25 mg PO DAILY propranolol 10 mg tablet 10 mg PO BID Discharge Orders: Discharge ED (Routine); Ordered 12/01/23 Ordered By: Jacoby Britt Referrals: Polina Wahl MD [Primary Care Provider] - Discharge Diet: Usual diet Discharge Activity: Increase activity as tolerated Patient Instructions: Abdominal Pain (ED), Opioid Safety, Pain Management Activity Restrictions/Additional Instructions: As we discussed your evaluation today did not reveal any serious condition or acute surgical condition. We recommend increasing your MiraLAX intake to twice daily to keep your stools soft until you are regular bowel pattern resumes. We also discussed that she should call your user support analyst supervisor to arrange a follow-up because of the potential involvement of your uterus with your current symptoms. If you develop increasing pain, vomiting diarrhea or other concerns at any time return to this or the nearest emergency department. Coding Level of Care Code ED Service Advisor for Danika Gracia
--- NOTE | 2023-12-01 10:20 | XRR_ITS ---
PROCEDURE INFORMATION: Exam: XR Chest Exam date and time: 12/01/2023 10:13 AM Age: 72 years old Clinical indication: Pain; Shortness of breath; Other: Upper abdominal; Additional info: Upper abd pain TECHNIQUE: Imaging protocol: Radiologic exam of the chest. Views: 1 view. COMPARISON: CT abdomen pelvis w con* [id number] 12/22/2022 9:44 PM FINDINGS: Lungs: Minimal linear streaking is stable since the CT scan the right base consistent with scarring. No focal new infiltrates. Pleural spaces: Unremarkable. No pleural effusion. No pneumothorax. Heart/Mediastinum: Unremarkable. No cardiomegaly. Bones/joints: Unremarkable. XR/XR chest 1V portable [id number] IMPRESSION: No acute findings.
[2023-12-01 10:32] LABS: Basophils % 0.3 %; Eosinophils # 0.1 10^3/uL (0.0-0.8); Eosinophils % 1.1 %; Hematocrit 48.1 % (36-47); Lymphocytes # 1.5 10^3/uL (0.8-4.8); Lymphocytes % 15.8 %; Mean Corpuscular HGB Conc 33.3 g/dL (30-55); Mean Corpuscular Hemoglobin 29.3 pg (27-33); Mean Corpuscular Volume 87.9 fl (85-98); Mean Platelet Volume 11.8 fL (7.4-10.4); Monocytes # 0.5 10^3/uL (0.2-0.9); Monocytes % 4.8 %; Neutrophils # 7.49 10^3/uL (1.8-7.7); Neutrophils % 77.7 %; Nucleated Red Blood Cells % 0 %; Platelet Count 220 10^3/cmm (157-399); Red Blood Count 5.47 10^6/uL (3.85-5.65); Red Cell Distribution Width 12.6 % (12.1-15.1); White Blood Count 9.64 10^3/uL (3.29-11.43)
[2023-12-01] MEDS: ondansetron 2 mg/ML SDV 2 mL 4 MG IVP (10:32)
[2023-12-01 10:38] VITALS: RESP 16; O2SAT 96
[2023-12-01] MEDS: fentaNYL 50 mcg/mL INJ 2mL 25 MCG IVP (10:38)
[2023-12-01] MEDS: lactated ringers 1,000 ML 999 ML IV (10:42)
[2023-12-01 11:05] LABS: Alanine Aminotransferase 11 U/L (0-33); Albumin Level 4.5 g/dL (3.5-5.2); Alkaline Phosphatase 125 U/L (35-105); Anion Gap 15.3 (5-19); Aspartate Amino Transferase 29 U/L (0-32); Blood Urea Nitrogen 10 mg/dL (8-23); Calcium 9.3 mg/dL (8.5-10.5); Carbon Dioxide 27 mmol/L (22-29); Chloride 105 mmol/L (98-107); Globulin 3.5 g/dL (1.3-4.6); Glomerular Filtration Rate 82.7 mL/min (90-130); Glucose 121 mg/dL (65-115); Lipase 19 U/L (13-60); Osmolality Calculated 296 mOsm/kg (285-295); Potassium 4.3 mmol/L (3.5-5.1); Sodium 143 mmol/L (136-145); Total Bilirubin 0.8 mg/dL (0.15-1.2)
[2023-12-01] MEDS: iohexol 350 mg/mL 500 mL Btl (per mL) IV (11:18)
[2023-12-01 12:26] VITALS: BP 178/78; PULSE 57; O2SAT 98
[2023-12-01 12:47] LABS: Add Urine Microscopic? YES; Bilirubin Urine Neg (Negative); Blood Urine Neg (Negative); Glucose Urine UA Norm (Normal); Ketones Urine Negative (Negative); Leukocyte Esterase Urine 1+ (Negative); Nitrate Urine Negative (Negative); Protein Urine Neg (Negative); Specific Gravity, Urine 1.005 (1.005-1.030); Urine Appearance Clear (CLEAR); Urine Color Yellow (Yellow); Urobilinogen Urine Norm (Negative); pH Urine 8 (5-7)
[2023-12-01 12:52] LABS: Add Urine Culture? No; WBC Urine 0-4 /hpf (0-5)
[2023-12-01 13:19] VITALS: BP 178/78; PULSE 57; RESP 16; TEMP 36.7; O2SAT 98
== END 2023-12-01 13:22 | disposition home or self-care (01) ==
PROVIDERS: Family Medicine; Emergency Provider Emergency Medicine; PCP Family Medicine
DX: R10.9 Unspecified abdominal pain (principal); K59.00 Constipation, unspecified; Z79.899 Other long term (current) drug therapy; Z87.19 Personal history of other diseases of the digestive system
CPT/HCPCS: 71045; 74177; 80053; 81001; 83690; 85025; 96374; 96375; 99285; J2405; J3010; J7120; Q9967

== ENCOUNTER 2024-03-27 13:17 | Outpatient (CLI) | payer MEDICARE, SELFPAY ==
--- NOTE | 2024-03-27 13:22 | XR_ITS ---
WS: [id number] DEXA (DUAL ENERGY X-RAY ABSORPTIOMETRY) Bone mineral density was performed using a Ensocare machine. HISTORY: POSTMENOPAUSAL COMPARISON: None available. Lumbar spine BMD (L1-L4): 1.202 g/cm2 T score: 0.2 Z score: 1.3 Total hip BMD: Left: 0.853 g/cm2. T score: -1.2 Z score: -0.1 Right: 0.899 g/cm2. T score: -0.9 Z score: 0.3 10 year probability of a major osteoporotic fracture is 9.0%. XR/XR DEXA axial skeleton* [id number] IMPRESSION: OSTEOPENIA based upon the WHO classification for females.
== END 2024-03-27 13:18 | disposition home or self-care (01) ==
LOC: RAD 13:19
PROVIDERS: PCP Family Medicine; Visit Provider Family Medicine
DX: Z13.820 Encounter for screening for osteoporosis (principal); Z78.0 Asymptomatic menopausal state; M85.80 Other specified disorders of bone density and structure, unspecified site
CPT/HCPCS: 77080

== ENCOUNTER 2024-04-09 08:07 | Outpatient (CLI) | payer MEDICARE, SELFPAY ==
--- NOTE | 2024-04-09 | ECG_ITS ---
[facility] Test Date: 2024-04-09 Pat Name: Vijaya Drake Department: Room: Gender: Female Senior Pharmacy Technician: : 1950 Requested By: Polina Fields Order Number: [id number] Ibrahim MD: Brendon Menendez M.D. Interpretive Statements EXERCISE MIBI EXERCISE DATA: The patient was exercised by Ciaran protocol. Baseline heart rate was 63 beats per minute. Baseline blood pressure was 159/94millimeters of mercury. Maximal predicted heart rate was 149 beats per minute. Maximum heart rate achieved was 189 which was 126% of the maximum predicted heart rate. Maximum blood pressure was 203/78 millimeters of mercury. Total exercise time was 6 mintues and 43 seconds. Maximum METs achieved was 10.2. The reason for ending the test was maximal effort achieved. The patient complained of shortness of breath during the stress test, which then resolved at the end of the test. ELECTROCARDIOGRAM: BASELINE: Showed sinus rhythm, normal axis, no significant ST-T changes at the baseline noted. [] EXERCISE: At the peak exercise level, [] No significant ST-T changes suggestive of ischemia noted. PVCs seen[] RECOVERY: During the recovery period, heart rate dropped appropriately. No significant ST-T changes in the recovery suggestive of ischemia noted. Frequent PVCs [] CONCLUSION: 1. Exercise capacity is good. 2. Heart rate response was appropriate 3. Blood pressure response was hypertensive. 4. Symptoms not suggestive of ischemia. 5. Electrocardiogram portion of the stress test was not suggestive of ischemia. 6. Nuclear scan will be documented separately. Electronically Signed On 04-26-2024 15:07:33 [employer]WE[employer]UIT [employer]ER by Brendon Menendez M.D. [email or web address]
[2024-04-09 08:32] VITALS: BMI 30.6
--- NOTE | 2024-04-09 08:35 | NMCV_ITS ---
NM zenaida perf SPECT r/s* [id number] Vijaya Drake Age: 73 Gender: F : 1950 Exam Date: 04/09/2024 08:35 Ordering Phys: Polina Wahl MD Technologist: MARINO Johnson Exam [facility]: [facility] Indications: cp STRESS TEST Please see separate stress test report in [facility] for full findings IMAGE PROTOCOL Rest/Stress 1 Exercise Day Radiopharmaceutical Dose (mCi) Administration Site Administered by Rest: Tc-99m 10.9 IV Rach Junior, CLIENT SERVICE MANAGER Sestamibi Stress:Tc-99m 32.6 IV Rach Junior, CLIENT SERVICE MANAGER Sestamibi Rest: 09-Apr-2024 60 Discovery 630 Stress: 09-Apr-2024 15 Discovery 630 Radiopharmaceutical was injected at 91 % maximum heart rate. Images obtained in supine and prone position. SPECT RESULTS Technical Quality: Good Raw Data Analysis: Normal Image Corrections: No attenuation or motion correction applied Summed Stress Score: 8 Summed Rest Score: 5 Summed Difference Score: 3 PERFUSION FINDINGS Medium sized area of moderate to severe reversibility noted in basal to distal inferolateral wall suggestive of ischemia in the circumflex territory. Small area of persistently decreased tracer uptake noted in the distal anterior wall suggestive of old myocardial infarction versus scarring. FUNCTIONAL RESULTS (calculated via Gated SPECT) Stress Image LV EF (%): 56 Stress EDV (mL):100 TID: 0.85 Stress ESV (mL):44 FUNCTIONAL FINDINGS: There appeared to be global hypokinesis. IMPRESSIONS Medium sized area of moderate ischemia noted in the basal to distal inferolateral wall suggestive of possible lesion in the left circumflex or dominant RCA Zonia Boyd MD (Electronically Signed) Final Date: 09 April 2024 20:56 S
[2024-04-09 10:01] VITALS: BP 163/112; PULSE 91
== END 2024-04-09 08:08 | disposition home or self-care (01) ==
PROVIDERS: PCP Family Medicine; Visit Provider Family Medicine
DX: R07.9 Chest pain, unspecified (principal); R94.39 Abnormal result of other cardiovascular function study; R06.02 Shortness of breath
CPT/HCPCS: 36415; 78452; 93017; 96374; A9500

== ENCOUNTER → 2024-05-08 15:13 | Outpatient (BNVA) | payer MEDICARE, SELFPAY | PROVIDERS: PCP Family Medicine; Visit Provider Nurse Practitioner Family | DX: L82.1 Other seborrheic keratosis (principal); L57.8 Other skin changes due to chronic exposure to nonionizing radiation; L81.4 Other melanin hyperpigmentation; D22.5 Melanocytic nevi of trunk; L57.0 Actinic keratosis | CPT/HCPCS: 17000; 99213 ==

== ENCOUNTER 2024-08-17 10:36 | Outpatient (CLI) | payer MEDICARE, SELFPAY ==
--- NOTE | 2024-08-17 10:41 | MM_ITS ---
WS: [id number] BILATERAL 3D TOMOSYNTHESIS DIGITAL SCREENING MAMMOGRAPHY WITH CAD CLINICAL INFORMATION: SCREENING HISTORY: Screening mammogram. No current complaints. COMPARISON: 2022 TECHNIQUE: Bilateral CC and MLO views. FINDINGS: Scattered fibroglandular densities bilaterally. No suspicious focal mass, asymmetry, calcifications, or architectural distortion. No evidence of malignancy. Incidental punctate calcifications. MM/MM scr tomosynthesis [id number] IMPRESSION: DENSITY: There are scattered areas of fibroglandular density. BI-RADS: 2 - Benign. FOLLOW UP: 1 Year Follow-up Recommend return to annual screening mammography.
== END 2024-08-17 10:37 | disposition home or self-care (01) ==
PROVIDERS: PCP Family Medicine; Visit Provider Family Medicine
DX: Z12.31 Encounter for screening mammogram for malignant neoplasm of breast (principal); R92.323 Mammographic fibroglandular density, bilateral breasts; R92.1 Mammographic calcification found on diagnostic imaging of breast
CPT/HCPCS: 77063; 77067

== ENCOUNTER → 2025-05-08 13:11 | Outpatient (BNVA) | payer MEDICARE, SELFPAY | PROVIDERS: PCP Family Medicine; Visit Provider Nurse Practitioner Family | DX: L57.8 Other skin changes due to chronic exposure to nonionizing radiation (principal); L81.4 Other melanin hyperpigmentation; L85.8 Other specified epidermal thickening; L82.1 Other seborrheic keratosis; D18.01 Hemangioma of skin and subcutaneous tissue; L82.0 Inflamed seborrheic keratosis; L29.89 Other pruritus; L53.8 Other specified erythematous conditions; Z78.9 Other specified health status; L91.8 Other hypertrophic disorders of the skin; R20.8 Other disturbances of skin sensation | CPT/HCPCS: 17110; 99213 ==